=== PATIENT | male | born 1990 | race Caucasian/White ===

== ENCOUNTER 2023-11-02 03:50 | Emergency (ER) | payer OTHER ==
[~2023-11-02] VITALS: Ht 180.3 cm; Wt 74.8 kg
[~2023-11-02 03:50] MED LIST: CEPH500 PO; CRUTCH4 USE; HYDACE5 PO; HYDACE5325 PO; RXOXYACE PO; SULTRIDS PO
[2023-11-02] MEDS ORDERED: Acetaminophen 325 MG TABLET PO ONE (05:55)
[2023-11-02] MEDS ORDERED: Lidocaine 4% 1 Patch TOP ONE (05:55)
[2023-11-02] MEDS ORDERED: Ketorolac Tromethamine 30mg Vial IV ONE (05:55)
[2023-11-02 06:41] VITALS: BP 132/92
== END 2023-11-02 07:23 ==
LOC: ER 03:50
DX: M54.6 Pain in thoracic spine (principal)
CPT/HCPCS: 71046; 93005; 93010; A9270; J1885